=== PATIENT | male | born 1990 | race Caucasian/White ===

== ENCOUNTER → 2021-10-07 | Outpatient (CLI) | payer SELFPAY ==
[~2021-10-07] MED LIST: AZTH250C PO; VICODIN 5/325 PO
[2021-10-07 11:54] LABS: SEMEN VOLUME 3.5 ML (1.5-5.0)
== END ==
LOC: LAB 10:10
PROVIDERS: ATTEND Family Medicine
DX: N46.9 Male infertility, unspecified (principal)
CPT/HCPCS: 89320